=== PATIENT | female | born 1940 | race Caucasian/White ===

== ENCOUNTER 2018-08-17 00:36 | Inpatient (IN) ==
[2018-08-17] MEDS ORDERED: Morphine Inj 4 MG/ML Vial IV.PUSH ONE (01:25)
[2018-08-17] MEDS ORDERED: Morphine Sulfate Inj 2 MG/ML Vial IV.PUSH PRN (01:36)
[2018-08-17 01:56] LABS: Baso % (Auto) 0.3 % (0.0-2.0); Eos % (Auto) 0.1 % (0.0-4.0); Hemoglobin 13.9 gm/dL (11.6-15.3); Lymph # (Auto) 4.1 th/mm3 (1.0-4.8); Lymph % (Auto) 26.2 % (9.0-44.0); Mean Corpuscular HGB Conc 33.9 % (32.0-36.0); Mean Corpuscular Hemoglobin 30.6 pg (27.0-34.0); Mean Corpuscular Volume 90.4 fL (80.0-100.0); Mean Platelet Volume 7.9 fL (7.0-11.0); Mono # (Auto) 0.7 th/mm3 (0.0-0.9); Mono % (Auto) 4.7 % (0.0-8.0); Neut # (Auto) 10.8 th/mm3 (1.8-7.7); Neut % (Auto) 68.7 % (16.0-70.0); Platelet Count 259 th/mm3 (150-450); Red Blood Count 4.54 mil/mm3 (4.00-5.30); Red Cell Distribution Width 14.4 % (11.6-17.2); White Blood Count 15.7 th/mm3 (4.0-11.0)
--- NOTE | 2018-08-17 02:01 | ED ---
HPI General Chief Complaint: Fall Stated Complaint: Medical/Transfer Time Seen by Provider: 08/17/18 01:18 Source: patient Mode of arrival: EMS Limitations: no limitations History of Present Illness HPI Narrative: 78-year-old female was transferred from [facility] after a grandfather clock that she was trying to fix fell on her chest. Patient says that this happened at 7 PM. She did not lose consciousness. Currently she is having chest pain especially when she takes a deep breath. She was evaluated in the emergency room. The chest x-ray shows sternal fracture and lung contusions. Patient has history of A. fib and is on Eliquis. She is awake and answering questions appropriately. Vital signs are relatively stable. Patient says that she did not receive any pain medications and would like something for the pain. She was accepted by the trauma surgeon for the transfer. Related Data Home Medications Medication Instructions Recorded Confirmed C,E,zinc,copper [id number] 1 cap PO DAILY 08/17/18 08/17/18 Vitamin D3 Complete 1 cap PO DAILY 08/17/18 08/17/18 apixaban [Eliquis] 2.5 mg PO BID 08/17/18 08/17/18 celecoxib 100 mg PO BID 08/17/18 08/17/18 citalopram 10 mg PO DAILY 08/17/18 08/17/18 cyanocobalamin (vitamin B-12) 5,000 mcg SUBLINGUAL DAILY 08/17/18 08/17/18 digoxin [Lanoxin] 0.125 mg PO DAILY 08/17/18 08/17/18 lisinopril 10 mg PO DAILY 08/17/18 08/17/18 metoprolol tartrate 50 mg PO BID 08/17/18 08/17/18 Allergies Allergy/AdvReac Type Severity Reaction Status Date / Time ciprofloxacin [From Cipro] Allergy Arrhythmias Verified 08/17/18 00:40 Review of Systems ROS: all other systems reviewed are negative [facility] Medical History Medical History Afib (Acute) Arrhythmia (Acute) Arthritis (Acute) Cancer (Acute) GERD (gastroesophageal reflux disease) (Acute) Glaucoma (Acute) Hypertension (Acute) 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 HEAD: Atraumatic. Normocephalic. EYES: Pupils equal and round. No scleral icterus. No injection or drainage. ENT: No nasal bleeding or discharge. Mucous membranes pink and moist. NECK: Trachea midline. No JVD. CARDIOVASCULAR: Regular rate and rhythm. No murmur appreciated. RESPIRATORY: No accessory muscle use. Clear to auscultation. Breath sounds equal bilaterally. Tender chest wall area over the sternum GASTROINTESTINAL: Abdomen soft, non-tender, nondistended. Hepatic and splenic margins not palpable. MUSCULOSKELETAL: No obvious deformities. No clubbing. No cyanosis. No edema. NEUROLOGICAL: Awake and alert. No obvious cranial nerve deficits. Motor grossly within normal limits. Normal speech. PSYCHIATRIC: Appropriate mood and affect; insight and judgment normal. Course Initial Documented Vital Signs Temperature 98 F 08/17/18 00:40 Pulse Rate 85 08/17/18 00:40 Respiratory Rate 20 08/17/18 00:40 Blood Pressure 110/50 L 08/17/18 00:40 Pulse Oximetry 95 08/17/18 00:40 Last Documented Vital Signs Temperature 98 F 08/17/18 00:40 Pulse Rate 85 08/17/18 00:40 Respiratory Rate 20 08/17/18 00:40 Blood Pressure 110/50 L 08/17/18 00:40 Pulse Oximetry 95 08/17/18 00:40 Medical Decision Making MDM Narrative Medical decision making narrative: 2 AM Case was discussed with Dr. Ceballos from trauma surgery and notified of the patient's arrival. He wants the patient to be admitted to ICU. Patient was given pain medication. Medical Screen Exam Complete: Yes Emergency Medical Condition: Yes Lab Data Result diagrams: 08/17/18 01:50 08/17/18 01:50 Lab Results 08/17/18 Range/Units 01:50 WBC 15.7 H (4.0-11.0) th/mm3 RBC 4.54 (4.00-5.30) mil/mm3 Hgb 13.9 (11.6-15.3) gm/dL Hct 41.0 (35.0-46.0) % MCV 90.4 (80.0-100.0) fL MCH 30.6 (27.0-34.0) pg MCHC 33.9 (32.0-36.0) % RDW 14.4 (11.6-17.2) % Plt Count 259 (150-450) th/mm3 MPV 7.9 (7.0-11.0) fL Neut % (Auto) 68.7 (16.0-70.0) % Lymph % (Auto) 26.2 (9.0-44.0) % [place] % (Auto) 4.7 (0.0-8.0) % Eos % (Auto) 0.1 (0.0-4.0) % Baso % (Auto) 0.3 (0.0-2.0) % Neut # (Auto) 10.8 H (1.8-7.7) th/mm3 Lymph # (Auto) 4.1 (1.0-4.8) th/mm3 [place] # (Auto) 0.7 (0.0-0.9) th/mm3 Eos # (Auto) 0.0 (0.0-0.4) th/mm3 Baso # (Auto) 0.0 (0.0-0.2) th/mm3 WBC Differential . Differential Comment Auto diff final Discharge Plan Discharge Disposition Patient Disposition: ED Admit(ED Internal Use Only) Discharge Order Discharge Orders: ED Use Only Admit Order (Routine); Ordered 08/17/18 Ordered By: Armani Wheatley Physicians Team ED Provider: Armani Wheatley Primary Care Provider: Primary Care Julia Castro Attending Provider: Jane Ceballos Discharge Interventions Interventions: Vital Signs Last Done: 08/17/18 00:58 Status ED Status: Admitted Patient
[2018-08-17 02:18] LABS: Calcium 8.3 mg/dL (8.5-10.1); Carbon Dioxide 28.2 meq/L (21.0-32.0); Potassium 5.4 meq/L (3.5-5.1)
[2018-08-17] MEDS ORDERED: Chlorhexidine Gluconate 2% 1 Pack (2 Cloths) TOPICAL PRN (04:00)
[2018-08-17] MEDS: Chlorhexidine Gluconate 2% 1 Pack (2 Cloths) TOPICAL SCH (04:49)
[2018-08-17] MEDS ORDERED: Sod Chloride 0.9% Inj 1,000 ML IV.CONT SCH (05:45)
--- NOTE | 2018-08-17 05:59 | P.HPCC ---
History of Present Illness Primary Care Physician: No Primary Care Physician History of Present Illness: 78 y female a grandfather clock fell on patient's chest and then she fell on to the floor.She was seen and worked up in an outside institution-she has a sternal fracture and pulmonary contusion.She c/o sternal pain-neuro intact,HD normal. Inpatient Certification: I certify that the inpatient services were ordered in accordance with Medicare regulations governing the order. This includes certification that hospital inpatient services are reasonable and necessary and in the case of services not specified as inpatient-only under 42 CFR 419.22(n), that they are appropriately provided as inpatient services in accordance to with the 2-midnight benchmark under 43 CFR 412.3(e) Estimated Total Length of Stay (Days): 5 Plans for Post Hospital Care: Home Review of Systems All other systems reviewed negative except as stated in HPI [facility] - History History Provided By: Patient - Medical History Medical History: Medical History (Last Reviewed 08/17/18 @ 02:00 by Armani Wheatley MD) Afib Arrhythmia Arthritis Cancer GERD (gastroesophageal reflux disease) Glaucoma Hypertension 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 UTI (urinary tract infection) Ulcer - Tobacco History Second Hand Smoke Exposure: No Smoking Status: Never smoker - Alcohol History How Often Do You Have a Drink Containing Alcohol: Never - Substance Use History Substance History: No History of Abuse - Travel History Recent Travel in the [place] Within the Last 8 Weeks: No Recent Travel Out of the Country Within the Last 8 Weeks: No - Immunization History Tetanus Immunization: <5 Years Hx Influenza Vaccine This Season: Yes Medications and Allergies Active Medications: Active Medications Chlorhexidine Gluconate (Chlorhexidine 2% Cloth) 3 pack TOPICAL DAILY@0400 JULES Stop: 08/22/18 03:59 Last Admin: 08/17/18 04:49 Dose: 3 pack Chlorhexidine Gluconate (Chlorhexidine 2% Cloth) 3 pack TOPICAL DAILY@0400 PRN PRN Reason: Extra cloth needed Stop: 08/22/18 03:59 Docusate Sodium (Colace) 100 mg PO BID JULES Acetaminophen (Ofirmev Inj) 1,000 mg in 100 mls @ 400 mls/hr IV.SIG Q6H JULES Stop: 08/17/18 20:14 Last Infusion: 08/17/18 02:51 Dose: Infused Sodium Chloride (Ns Inj) 1,000 mls @ 42 mls/hr IV.CONT .[id number] [facility] Last Admin: 08/17/18 05:44 Dose: 42 mls/hr Morphine Sulfate (Morphine Inj) 2 mg IV.PUSH Q3H PRN PRN Reason: Break through pain Ondansetron HCl (Zofran Inj) 4 mg IV.PUSH Q6H PRN PRN Reason: NAUSEA OR VOMITING Sodium Chloride (Ns Flush) 2 ml IV.FLUSH UNSCH PRN PRN Reason: FLUSH AFTER USING IV ACCESS Allergies Allergy/AdvReac Type Severity Reaction Status Date / Time ciprofloxacin [From Cipro] Allergy Arrhythmias Verified 08/17/18 00:40 Home Medications Medication Instructions Recorded Confirmed Type C,E,zinc,copper [id number] 1 cap PO DAILY 08/17/18 08/17/18 History Vitamin D3 Complete 1 cap PO DAILY 08/17/18 08/17/18 History apixaban [Eliquis] 2.5 mg PO BID 08/17/18 08/17/18 History celecoxib 100 mg PO BID 08/17/18 08/17/18 History citalopram 10 mg PO DAILY 08/17/18 08/17/18 History cyanocobalamin (vitamin B-12) 5,000 mcg SUBLINGUAL DAILY 08/17/18 08/17/18 History digoxin [Lanoxin] 0.125 mg PO DAILY 08/17/18 08/17/18 History lisinopril 10 mg PO DAILY 08/17/18 08/17/18 History metoprolol tartrate 50 mg PO BID 08/17/18 08/17/18 History Results - Labs CBC & Chem 7: 08/17/18 01:50 08/17/18 01:50 Labs: Short CBC 08/17/18 Range/Units 01:50 WBC 15.7 H (4.0-11.0) th/mm3 Hgb 13.9 (11.6-15.3) gm/dL Hct 41.0 (35.0-46.0) % Plt Count 259 (150-450) th/mm3 [facility] 08/17/18 01:50 Sodium 139 Potassium 5.4 H Chloride 102 Carbon Dioxide 28.2 BUN 23 H Creatinine 1.08 H Calcium 8.3 L Cardiac Enzymes 08/17/18 Range/Units 01:50 Troponin I 0.03 (0.02-0.05) ng/mL Exam Vital signs: Vital Signs 08/17/18 00:40 08/17/18 00:58 08/17/18 01:59 Temperature 98 F Pulse Rate 85 101 H Respiratory Rate 20 20 Blood Pressure 110/50 L 162/76 H Pulse Oximetry 95 98 99 08/17/18 02:51 08/17/18 03:27 08/17/18 04:31 Temperature 98.7 F Pulse Rate 93 H Respiratory Rate 20 20 17 Blood Pressure 123/91 H Pulse Oximetry 97 08/17/18 05:00 Temperature Pulse Rate 89 Respiratory Rate 16 Blood Pressure 92/51 L Pulse Oximetry 98 Intake & Output 08/16/18 08/16/18 08/17/18 06:59 18:59 06:59 Intake Total 100 / 100 Balance 100 / 100 Weight 60.9 kg Intake: IV 100 / 100 Ofirmev Inj 1,000 mg In 100 ml 100 / 100 @ 400 mls/hr IV.SIG Q6H JULES Rx# :[id number] Other: # Urine Diapers 2 Weight On Admission 60.9 kg - Constitutional no acute distress - Routine HEENT Exam Head: Present: normocephalic, atraumatic Eye: Present: EOMI, PERRL ENT: Present: mucous membranes moist, oropharynx clear - Routine Neck Exam Present: supple, full ROM, trachea midline - Routine Chest/Breast/Axilla Exam Chest wall: Present: tenderness - Routine Respiratory Exam Present: CTA bilaterally - Routine Cardiovascular Exam Present: RRR - Routine Abdominal Exam Present: soft, normoactive bowel sounds - Routine Neurological Exam Present: alert, oriented X3 Caprini VTE Risk Assessment Caprini VTE Risk Assessment: Moderate/High Risk (score >= 2) (trauma) VTE Pharmacological Exception Reason: High risk for bleeding Caprini Risk Assessment Model: Point Value = 1 Point Value = 2 Point Value = 3 Point Value = 5 Age 41-60 Minor surgery BMI > 25 kg/m2 Swollen legs Varicose veins or History of unexplained or recurrent spontaneous Oral contraceptives or hormone replacement Sepsis (< 1 month) Serious lung disease, including pneumonia (< 1 month) Abnormal pulmonary function Acute myocardial infarction Congestive heart failure (< 1 month) History of inflammatory bowel disease Medical patient at bed rest Age 61-74 Arthroscopic surgery Major open surgery (> 45 min) Laparoscopic surgery (> 45 min) Malignancy Confined to bed (> 72 hours) Immobilizing plaster cast Central venous access Age >= 75 History of VTE Family history of VTE Factor V Leiden Prothrombin [id number] Lupus anticoagulant Anticardiolipin antibodies Elevated serum homocysteine Heparin-induced thrombocytopenia Other congenital or acquired thrombophilia Stroke (< 1 month) Elective arthroplasty Hip, pelvis, or leg fracture Acute spinal cord injury (< 1 month) Prophylaxis Regimen: Total Risk Factor Score Risk Level Prophylaxis Regimen 0-1 Low Early ambulation 2 Moderate Order ONE of the following: *Sequential Compression Device (SCD) *Heparin 5000 units SQ BID 3-4 Higher Order ONE of the following medications: *Heparin 5000 units SQ TID *Enoxaparin/Lovenox 40 mg SQ daily (WT < 150 kg, CrCl > 30 mL/min) *Enoxaparin/Lovenox 30 mg SQ daily (WT < 150 kg, CrCl > 10-29 mL/min) *Enoxaparin/Lovenox 30 mg SQ BID (WT < 150 kg, CrCl > 30 mL/min) AND/OR *Sequential Compression Device (SCD) 5 or more Highest Order ONE of the following medications: *Heparin 5000 units SQ TID (Preferred with Epidurals) *Enoxaparin/Lovenox 40 mg SQ daily (WT < 150 kg, CrCl > 30 mL/min) *Enoxaparin/Lovenox 30 mg SQ daily (WT < 150 kg, CrCl > 10-29 mL/min) *Enoxaparin/Lovenox 30 mg SQ BID (WT < 150 kg, CrCl > 30 mL/min) AND *Sequential Compression Device (SCD) Assessment and Plan - Assessment and Plan Plan: sternal fracture with pulmonary contusion in eliquis hypernatriemia admit to [facility] pain control IS watch K FU CXR H&P: Quality - VTE Deep Vein Thrombosis/Pulmonary Embolism Present on Admission: No
--- NOTE | 2018-08-17 08:37 | CT ---
EXAM DATE: 08/17/2018 8:00 AM EST AGE/SEX: 78 years / Female INDICATIONS: Center chest pain. CLINICAL DATA: This is the patient's initial encounter. Patient reports that signs and symptoms have been present for 1 day and indicates a pain score of 8/10. MEDICAL/SURGICAL HISTORY: Gastroesophageal reflux disease. Hypertension. None. RADIATION DOSE: 5.1 CTDI (mGy) COMPARISON: No prior exams available for comparison. TECHNIQUE: Multiple contiguous axial images were obtained through the chest without contrast. Image s were obtained in suspended respiration using multiple row detector helical technique. Using automa brittany exposure control and adjustment of the mA and/or kV according to patient size, radiation dose was kept as low as reasonably achievable to obtain optimal diagnostic quality images. DICOM format imag e data is available electronically for review and comparison. FINDINGS: Lungs: Focal subsegmental consolidation with underlying airspace disease is identified anteriorly wi thin the lingula. Very subtle tree-in-bud pattern is identified in both upper lobes. There appears to be focal scarring within the right middle lobe. No other focal lung abnormalities are noted. Mediastinum: There is good visualization of the great vessels of the middle mediastinum. No evidenc e of mediastinal or hilar adenopathy/mass. Pleurae: No evidence of focal thickening or pleural effusion. Axillae: Unremarkable. Bony Structures: Unremarkable. Miscellaneous: A well-circumscribed low density is identified in the right hepatic lobe which has th e appearance of the cyst. CONCLUSION: 1. Small focal subsegmental consolidating airspace disease with underlying airspace changes in the l ingula. 2. Minimal tree-in-bud pattern which may relate to mild airspace disease or infectious bronchiolitis . 3. Hepatic cyst 4. No evidence of suspicious mass or lymphadenopathy. Electronically signed by: Himanshu Vincent MD 08/17/2018 8:36 AM EST
[2018-08-17] MEDS: Docusate Sodium 100 MG Capsule PO SCH ×2 (09:18→20:02)
[2018-08-17] MEDS: Lisinopril 10 MG Tablet PO SCH (09:19)
[2018-08-17] MEDS: Metoprolol Tartrate 50 MG Tablet PO SCH ×2 (09:19→20:02)
[2018-08-17] MEDS: Digoxin 125 MCG Tablet PO SCH (09:43)
[2018-08-17] MEDS: Citalopram 20 MG Tablet PO SCH (09:46)
[2018-08-17] MEDS: Lidocaine 5% Patch T-DERMAL SCH (10:30)
[2018-08-17 14:00] LABS: Calcium 7.8 mg/dL (8.5-10.1); Carbon Dioxide 30.4 meq/L (21.0-32.0); Potassium 4.4 meq/L (3.5-5.1)
--- NOTE | 2018-08-17 16:43 | ECG ---
Date Performed: 08/17/2018 Time Performed: 08:17:48 PTAGE: 78 years EKG: Atrial fibrillation controlled ventricular rate LAD Left anterior fascicular block Minor no nspecific ST-T wave changes Abnormal ECG NO PREVIOUS TRACING DOCTOR: Tristin Watson Interpretating Date/Time 08/17/2018 16:42:35
--- NOTE | 2018-08-18 06:02 | XR ---
EXAM DATE: 08/18/2018 5:56 AM EST AGE/SEX: 78 years / Female INDICATIONS: Short of breath, sternum pain, evaluate atelctasis and blunt trauma to chest CLINICAL DATA: This is the patient's subsequent encounter. Patient reports that signs and symptoms h ave been present for 3 days and indicates a pain score of 6/10. MEDICAL/SURGICAL HISTORY: Gastroesophageal reflux disease. Hypertension. sternum fracture Non e. COMPARISON: . FINDINGS: Single AP view the chest. The lungs are clear. Cardiomediastinal silhouette within normal limits. No evidence of pleural effusion or pneumothorax. CONCLUSION: No acute cardiopulmonary disease identified. Electronically signed by: Cristian Siegel MD 08/18/2018 6:01 AM EST
[2018-08-18] MEDS ORDERED: Acetaminophen 325 MG Tablet PO PRN (06:34)
[2018-08-18] MEDS: Chlorhexidine Gluconate 2% 1 Pack (2 Cloths) TOPICAL SCH (08:49)
[2018-08-18] MEDS: Digoxin 125 MCG Tablet PO SCH (08:59)
[2018-08-18] MEDS: Docusate Sodium 100 MG Capsule PO SCH ×2 (08:59→20:54)
[2018-08-18] MEDS: Lidocaine 5% Patch T-DERMAL SCH (08:59)
[2018-08-18 09:00] LABS: Baso # (Auto) 0.1 th/mm3 (0.0-0.2); Baso % (Auto) 0.5 % (0.0-2.0); Eos # (Auto) 0.1 th/mm3 (0.0-0.4); Eos % (Auto) 0.8 % (0.0-4.0); Hematocrit 39.2 % (35.0-46.0); Hemoglobin 13.2 gm/dL (11.6-15.3); Mean Corpuscular HGB Conc 33.6 % (32.0-36.0); Mean Corpuscular Hemoglobin 30.7 pg (27.0-34.0); Mean Corpuscular Volume 91.4 fL (80.0-100.0); Mean Platelet Volume 7.8 fL (7.0-11.0); Mono # (Auto) 0.5 th/mm3 (0.0-0.9); Mono % (Auto) 5.2 % (0.0-8.0); Neut # (Auto) 6.1 th/mm3 (1.8-7.7); Neut % (Auto) 62.5 % (16.0-70.0); Platelet Count 238 th/mm3 (150-450); Red Blood Count 4.29 mil/mm3 (4.00-5.30); Red Cell Distribution Width 14.1 % (11.6-17.2); White Blood Count 9.8 th/mm3 (4.0-11.0)
[2018-08-18] MEDS: Citalopram 20 MG Tablet PO SCH (09:00)
[2018-08-18] MEDS: Lisinopril 10 MG Tablet PO SCH (09:02)
[2018-08-18] MEDS: Metoprolol Tartrate 50 MG Tablet PO SCH ×2 (09:03→20:56)
[2018-08-18 09:30] LABS: Calcium 8.8 mg/dL (8.5-10.1); Carbon Dioxide 29.9 meq/L (21.0-32.0); Potassium 4.2 meq/L (3.5-5.1)
--- NOTE | 2018-08-18 10:37 | P.CON ---
History of Present Illness Service: [facility] Consult date: 08/17/18 Requesting Physician: Wil Last Reason for Consult: medical management Primary Care Provider: No Primary Care Physician Chief Complaint: Clock fell on me History of Present Illness: 78-year-old female with past medical history significant for A. fib anticoagulated on Eliquis, arthritis, GERD, HTN, cancer and glaucoma who presented to the [facility] 12/8 centimeters EMS following a fall. Medical records reviewed. Patient apparently had been moving a 50 pound grandfather clock when the clock tilted forward causing the patient to fall backwards with a clot landing on top of her and hitting her head. Per medical records bilateral hip x-rays with no fracture, arthroplasty hip noted. CT of the head with global brain atrophy and chronic white matter ischemic changes, CT of cervical spine with degenerative changes without acute injury. CT of the chest with no pulmonary artery embolism, nonspecific 2.9 cm opacity in anterior medial left upper lobe possibly contusion, infection or atelectasis. Cortical deficit of posterior sternum appears acute but is nondisplaced, this is at the level of the pulmonary opacity. Minimal retrosternal contusion with no injury of adjacent vessels. Nonspecific 10 x 11 mm low-density mass in the pancreatic tail with suspicion for mass in pancreatic head. Knee x-ray with no acute fracture. Patient was transferred to [facility] on 08/17 for further management under trauma services. [facility] consulted to assist with further medical management. Patient is seen and examined resting in bed comfortably in no acute distress. She reports chest pain which is increased with activity as well as with sternal pressure and deep breathing. She denies any cough, shortness of breath, nausea, vomiting, diarrhea, headache or dizziness. Patient reports that she recently had left hip replacement in June and had been using both a cane and a walker. She states that she had gradually tried to decrease the use of her walker and on the day of the incident she was adjusting the clock when she experienced some weakness in her legs causing her to react and grab hold of the clock. She reports falling with the clock landing on top of her. Patient also tells me that she has a history of scoliosis and last time she was seen by her orthopedic surgeon was told that the scoliosis had advanced slightly, she is not a surgical candidate. She denies any dizziness, lightheadedness, chest palpitations, visual changes, shortness of breath or chest pain right before the incident. At the current moment she reports some pain and tenderness on her chest, she states that the doctor has adjusted her pain medication. 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 Scoliosis Ulcer - Surgical History Surgical History: Surgical History (Last Updated 08/18/18 @ 10:58 by Ashley Bryson) History of hip replacement - Family History Family History: Family History (Last Updated 08/18/18 @ 10:59 by Ashley Bryson) Father Brain cancer Myocardial infarct Mother Cancer - Social History I have reviewed the patient's Social History: Yes - Tobacco History Second Hand Smoke Exposure: No Smoking Status: Never smoker - Alcohol History How Often Do You Have a Drink Containing Alcohol: Never - Substance Use History Substance History: No History of Abuse - Travel History Recent Travel in the [facility] Within the Last 8 Weeks: No Recent Travel Out of the Country Within the Last 8 Weeks: No - Immunization History Tetanus Immunization: <5 Years Hx Influenza Vaccine This Season: Yes Medications and Allergies Active Medications: Active Medications Acetaminophen (Tylenol) 650 mg PO Q4H PRN PRN Reason: PAIN 1-10 AND/OR FEVER >101F Last Admin: 08/18/18 09:02 Dose: 650 mg Chlorhexidine Gluconate (Chlorhexidine 2% Cloth) 3 pack TOPICAL DAILY@0400 [facility] Stop: 08/22/18 03:59 Last Admin: 08/18/18 08:49 Dose: Not Given Chlorhexidine Gluconate (Chlorhexidine 2% Cloth) 3 pack TOPICAL DAILY@0400 PRN PRN Reason: Extra cloth needed Stop: 08/22/18 03:59 Citalopram Hydrobromide (Celexa) 10 mg PO DAILY [facility] Last Admin: 08/18/18 09:00 Dose: 10 mg Cyanocobalamin (Vitamin B12) 5,000 mcg PO DAILY [facility] Last Admin: 08/18/18 09:01 Dose: 5,000 mcg Digoxin (Lanoxin) 125 mcg PO DAILY [facility] Last Admin: 08/18/18 08:59 Dose: 125 mcg Docusate Sodium (Colace) 100 mg PO BID [facility] Last Admin: 08/18/18 08:59 Dose: 100 mg Lidocaine HCl (Lidoderm 5% Patch.12 Hr) 1 patch T-DERMAL DAILY [facility] Last Admin: 08/18/18 08:59 Dose: 1 patch Lisinopril (Prinivil) 10 mg PO DAILY [facility] Last Admin: 08/18/18 09:02 Dose: 10 mg Metoprolol Tartrate (Lopressor) 50 mg PO BID [facility] Last Admin: 08/18/18 09:03 Dose: 50 mg Morphine Sulfate (Morphine Inj) 2 mg IV.PUSH Q3H PRN PRN Reason: Break through pain Ondansetron HCl (Zofran Inj) 4 mg IV.PUSH Q6H PRN PRN Reason: NAUSEA OR VOMITING Patch Removal (Remove Old Patch) 1 each T-DERMAL HS [facility] Last Admin: 08/17/18 20:02 Dose: 1 each Sodium Chloride (Ns Flush) 2 ml IV.FLUSH UNSCH PRN PRN Reason: FLUSH AFTER USING IV ACCESS Vitamin D (Vitamin D3) 1 unit PO DAILY [facility] Last Admin: 08/18/18 09:04 Dose: 1 unit Allergies Allergy/AdvReac Type Severity Reaction Status Date / Time ciprofloxacin [From Cipro] Allergy Arrhythmias Verified 08/17/18 00:40 Home Medications Medication Instructions Recorded Confirmed Type C,E,zinc,copper [id number] 1 cap PO DAILY 08/17/18 08/17/18 History Vitamin D3 Complete 1 cap PO DAILY 08/17/18 08/17/18 History apixaban [Eliquis] 2.5 mg PO BID 08/17/18 08/17/18 History celecoxib 100 mg PO BID 08/17/18 08/17/18 History citalopram 10 mg PO DAILY 08/17/18 08/17/18 History cyanocobalamin (vitamin B-12) 5,000 mcg SUBLINGUAL DAILY 08/17/18 08/17/18 History digoxin [Lanoxin] 0.125 mg PO DAILY 08/17/18 08/17/18 History lisinopril 10 mg PO DAILY 08/17/18 08/17/18 History metoprolol tartrate 50 mg PO BID 08/17/18 08/17/18 History Physical Exam Vital signs: Vital Signs 08/17/18 10:38 08/17/18 11:00 08/17/18 12:00 Temperature 98.3 F Pulse Rate 59 L 62 58 L Respiratory Rate 20 22 16 Blood Pressure 97/63 L Pulse Oximetry 96 96 96 08/17/18 13:00 08/17/18 14:00 08/17/18 14:46 Temperature Pulse Rate 58 L 65 79 Respiratory Rate 19 20 21 Blood Pressure 103/60 Pulse Oximetry 96 97 96 08/17/18 15:00 08/17/18 16:00 08/17/18 16:10 Temperature 97.9 F Pulse Rate 76 72 89 Respiratory Rate 19 12 18 Blood Pressure 127/55 L Pulse Oximetry 95 95 08/17/18 17:00 08/17/18 18:00 08/17/18 19:00 Temperature Pulse Rate 72 72 86 Respiratory Rate 14 19 20 Blood Pressure Pulse Oximetry 95 95 95 08/17/18 19:26 08/17/18 20:00 08/17/18 20:05 Temperature 98.6 F Pulse Rate 82 70 Respiratory Rate 20 20 Blood Pressure 126/76 Pulse Oximetry 95 95 94 L 08/17/18 20:17 08/17/18 21:50 08/18/18 00:20 Temperature 98.6 F 97.9 F Pulse Rate 77 82 Respiratory Rate 22 18 18 Blood Pressure 118/62 135/71 Pulse Oximetry 96 96 08/18/18 03:30 08/18/18 05:00 08/18/18 08:00 Temperature 98 F 97.2 F L Pulse Rate 102 H 100 H Respiratory Rate 17 18 18 Blood Pressure 127/88 110/66 Pulse Oximetry 96 94 L Intake & Output 08/17/18 08/18/18 08/18/18 18:59 06:59 18:59 Intake Total 990 / 990 340 / 340 Output Total 525 / 525 Balance 465 / 465 340 / 340 Weight 66.2 kg Intake: IV 300 / 300 100 / 100 NS Inj 1,000 ML @ 42 mls/hr IV. 100 / 100 CONT .[id number] JULES Rx#:[id number] Ofirmev Inj 1,000 mg In 100 ml 200 / 200 100 / 100 @ 400 mls/hr IV.SIG Q6H JULES Rx# :[id number] Oral 690 / 690 240 / 240 Output: Urine 525 / 525 Other: # Voids 3 Date of Last Bowel Movement 08/16/18 # Bowel Movements 0 Narrative: GENERAL: Well-developed, well-nourished female resting in bed in no acute distress. SKIN: Warm and dry. Midsternal ecchymosis, right hand ecchymosis, left medial forearm ecchymosis. HEAD: Atraumatic. Normocephalic. EYES: Pupils equal and round. No scleral icterus. No injection or drainage. ENT: No nasal bleeding or discharge. Mucous membranes pink and moist. NECK: Trachea midline. CARDIOVASCULAR: Irregular rate with no murmurs or rubs. RESPIRATORY: No accessory muscle use. Clear to auscultation. Breath sounds equal bilaterally. GASTROINTESTINAL: Abdomen soft, non-tender, nondistended. + Bowel sounds MUSCULOSKELETAL: Extremities without clubbing, edema, or cyanosis. No obvious deformities. NEUROLOGICAL: Awake, alert, oriented x3. No obvious cranial nerve deficits. Motor grossly within normal limits. 4/5 muscle strength in the arms and legs. Normal speech. PSYCHIATRIC: Appropriate mood and affect; insight and judgment normal. Results - Labs CBC & Chem 7: 08/18/18 08:23 08/18/18 08:23 Labs: Laboratory Results - last 24 hr 08/17/18 08/18/18 08/18/18 12:41 08:23 08:23 WBC 9.8 RBC 4.29 Hgb 13.2 Hct 39.2 MCV 91.4 MCH 30.7 MCHC 33.6 RDW 14.1 Plt Count 238 MPV 7.8 Neut % (Auto) 62.5 Lymph % (Auto) 31.0 [place] % (Auto) 5.2 Eos % (Auto) 0.8 Baso % (Auto) 0.5 Neut # (Auto) 6.1 Lymph # (Auto) 3.0 [place] # (Auto) 0.5 Eos # (Auto) 0.1 Baso # (Auto) 0.1 WBC Differential . Differential Comment Auto diff final Sodium 139 138 Potassium 4.4 D 4.2 Chloride 103 102 Carbon Dioxide 30.4 29.9 Anion Gap 6 6 BUN 19 H 15 Creatinine 0.95 1.00 Estimated GFR 57 L 53 L Random Glucose 101 88 Calcium 7.8 L 8.8 D Troponin I 08/18/18 08:23 WBC RBC Hgb Hct MCV MCH MCHC RDW Plt Count MPV Neut % (Auto) Lymph % (Auto) [place] % (Auto) Eos % (Auto) Baso % (Auto) Neut # (Auto) Lymph # (Auto) [place] # (Auto) Eos # (Auto) Baso # (Auto) WBC Differential Differential Comment Sodium Potassium Chloride Carbon Dioxide Anion Gap BUN Creatinine Estimated GFR Random Glucose Calcium Troponin I Less than 0.02 L - Imaging Impressions Chest X-Ray 08/18/18 06:00 CONCLUSION: No acute cardiopulmonary disease identified. Assessment and Plan - Plan 78-year-old female with past medical history significant for A. fib anticoagulated on Eliquis, arthritis, GERD, HTN, cancer and glaucoma who presented to the [facility] 08/16 centimeters EMS following a fall. Patient was transferred to [facility] on 08/17 for further management under trauma services. [facility] consulted to assist with further medical management. Chest blunt trauma Sternal fracture/pulmonary contusion - Chest CT 08/17 with focal subsegmental consolidation with underlying airspace disease identified anteriorly within the lingula. Very subtle tree-in-bud pattern is identified in both upper lobes. Appears to be focal scarring within the right middle lobe. Hepatic cyst, no suspicious mass or lymphadenopathy. -Chest x-ray this morning with no acute cardiopulmonary disease -CBC and BMP stable, troponin x2 negative - Continue Lidoderm patch, pain medications per trauma services -PT to eval and treat, encourage IS use Hx a.fib, rate controlled - Anticoagulated on Eliquis, on hold 2/2 lung contusion -Continue metoprolol and digoxin, rate controlled Hypertension, controlled -Continue beta-rodo and lisinopril DVT prophylaxis-SCDs Thank you Wil for this consultation, will continue to follow along. Discussed Condition With: Patient and PT
--- NOTE | 2018-08-18 15:18 | P.PN ---
Subjective Interval history: Unable to get OOB yesterday d/t increased pain with mobility More painful today Incentive spirometer VL= 2000mL Physical Exam Vital signs: Vital Signs 08/17/18 16:00 08/17/18 16:10 08/17/18 17:00 Temperature 97.9 F Pulse Rate 72 89 72 Respiratory Rate 12 18 14 Blood Pressure 127/55 L Pulse Oximetry 95 95 08/17/18 18:00 08/17/18 19:00 08/17/18 19:26 Temperature Pulse Rate 72 86 82 Respiratory Rate 19 20 20 Blood Pressure 126/76 Pulse Oximetry 95 95 95 08/17/18 20:00 08/17/18 20:05 08/17/18 20:17 Temperature 98.6 F Pulse Rate 70 Respiratory Rate 20 22 Blood Pressure Pulse Oximetry 95 94 L 08/17/18 21:50 08/18/18 00:20 08/18/18 03:30 Temperature 98.6 F 97.9 F Pulse Rate 77 82 Respiratory Rate 18 18 17 Blood Pressure 118/62 135/71 Pulse Oximetry 96 96 08/18/18 05:00 08/18/18 08:00 08/18/18 12:00 Temperature 98 F 97.2 F L 97.2 F L Pulse Rate 102 H 100 H 80 Respiratory Rate 18 18 18 Blood Pressure 127/88 110/66 101/66 Pulse Oximetry 96 95 92 L Intake & Output 08/17/18 08/18/18 08/18/18 18:59 06:59 18:59 Intake Total 990 / 990 340 / 340 Output Total 525 / 525 Balance 465 / 465 340 / 340 Weight 66.2 kg Intake: IV 300 / 300 100 / 100 NS Inj 1,000 ML @ 42 mls/hr IV. 100 / 100 CONT .[id number] JULES Rx#:[id number] Ofirmev Inj 1,000 mg In 100 ml 200 / 200 100 / 100 @ 400 mls/hr IV.SIG Q6H JULES Rx# :[id number] Oral 690 / 690 240 / 240 Output: Urine 525 / 525 Other: # Voids 3 Date of Last Bowel Movement 08/16/18 08/16/18 # Bowel Movements 0 Narrative: GENERAL: 78 year old well-developed, well-nourished female lying in bed in no acute distress. SKIN: Warm and dry. Midsternal ecchymosis noted. CARDIOVASCULAR: Irregularly irregular. RESPIRATORY: No accessory muscle use. Clear to auscultation bilaterally. GASTROINTESTINAL: Abdomen soft, non-tender, nondistended. + BS MUSCULOSKELETAL: Extremities without edema, or cyanosis. MAEW, + perfused NEUROLOGICAL: Awake, alert, oriented x3. Normal speech. Results - Labs CBC & Chem 7: 08/18/18 08:23 12 08:23 Laboratory Results - last 24 hr 08/18/18 08/18/18 08/18/18 08:23 08:23 08:23 WBC 9.8 RBC 4.29 Hgb 13.2 Hct 39.2 MCV 91.4 MCH 30.7 MCHC 33.6 RDW 14.1 Plt Count 238 MPV 7.8 Neut % (Auto) 62.5 Lymph % (Auto) 31.0 [place] % (Auto) 5.2 Eos % (Auto) 0.8 Baso % (Auto) 0.5 Neut # (Auto) 6.1 Lymph # (Auto) 3.0 [place] # (Auto) 0.5 Eos # (Auto) 0.1 Baso # (Auto) 0.1 WBC Differential . Differential Comment Auto diff final Sodium 138 Potassium 4.2 Chloride 102 Carbon Dioxide 29.9 Anion Gap 6 BUN 15 Creatinine 1.00 Estimated GFR 53 L Random Glucose 88 Calcium 8.8 D Troponin I Less than 0.02 L - Imaging Impressions Chest X-Ray 08/18/18 06:00 CONCLUSION: No acute cardiopulmonary disease identified. Assessment and Plan - Plan ANVIK: Grandfather clock fell on her chest while she was trying to fix it. No LOC. GCS= 15. Trauma transfer. INJURIES: Sternal fx BILAT pulmonary contusions PMHx: Afib (On Eliquis), Arthritis, GERD, cancer, depression,HTN, Glaucoma, Degenerative myopia left eye, gastric ulcer Sternal fx, BILAT pulmonary contusions Supportive care Pulmonary toileting CXR today shows no acute cardiopulmonary disease Pain control- pain regimen adjusted Bowel regimen OOB- PT and OT ordered Tele shows Afib Resume Eliquis today Hospitalist consulted for medical management Plan of care d/w patient and RN at bedside. Collaborating Trauma MD agrees with plan. Case management consulted to assist with DC planning. Patient may need SNF placement at DC depending on progress with PT. Reports she lives at home with her sons.
[2018-08-19] MEDS: Chlorhexidine Gluconate 2% 1 Pack (2 Cloths) TOPICAL SCH (04:37)
[2018-08-19] MEDS: Lisinopril 10 MG Tablet PO SCH (08:28)
[2018-08-19] MEDS: Metoprolol Tartrate 50 MG Tablet PO SCH ×2 (08:28→20:52)
[2018-08-19] MEDS: Lidocaine 5% Patch T-DERMAL SCH (08:29)
[2018-08-19] MEDS: Citalopram 20 MG Tablet PO SCH (08:29)
[2018-08-19] MEDS: Digoxin 125 MCG Tablet PO SCH (08:29)
[2018-08-19] MEDS: Docusate Sodium 100 MG Capsule PO SCH ×2 (08:30→20:52)
[2018-08-19] MEDS: Polyethylene Glycol 3350 17 GM Packet PO SCH (08:31)
--- NOTE | 2018-08-19 08:52 | P.DCO ---
- Physical Therapy Order: Evaluate and treat, Improve ambulation, Strength and gait training - Home Health Nursing Order: Nursing assessment with vital signs - Case Management Consult Case Management Consult-Home Health: Yes - Certification I have seen patient Debra Palma on 08/19/18. My clinical findings support the need for the requested home health care services because: Limited mobility due to disease progression, Limited ability to care for self I certify that my clinical findings support that this patient is homebound because: Unsteady gait/balance
--- NOTE | 2018-08-19 08:52 | P.PN ---
Subjective Interval history: Pain better today Still requiring max assist OOB. Not interested in rehab at [place] Physical Exam Vital signs: Vital Signs 08/18/18 12:00 08/18/18 19:01 08/18/18 20:00 Temperature 97.2 F L 97.8 F Pulse Rate 80 73 Respiratory Rate 18 18 Blood Pressure 101/66 99/61 L 114/63 Pulse Oximetry 92 L 91 L 08/19/18 00:00 08/19/18 04:00 Temperature 97.7 F 97.8 F Pulse Rate 76 87 Respiratory Rate 18 18 Blood Pressure 104/68 121/64 Pulse Oximetry 92 L 97 Intake & Output 08/18/18 08/19/18 08/19/18 18:59 06:59 18:59 Intake Total 180 / 180 120 / 120 Output Total 350 / 350 Balance 180 / 180 -230 / -230 Weight 65 kg Intake: Oral 180 / 180 120 / 120 Output: Urine 350 / 350 Other: Date of Last Bowel Movement 08/16/18 08/18/18 Narrative: GENERAL: 78 year old well-developed, well-nourished female lying in bed in no acute distress. SKIN: Warm and dry. Midsternal ecchymosis noted. CARDIOVASCULAR: Irregularly irregular. RESPIRATORY: No accessory muscle use. Clear to auscultation bilaterally. GASTROINTESTINAL: Abdomen soft, non-tender, nondistended. + BS MUSCULOSKELETAL: Extremities without edema, or cyanosis. MAEW, + perfused NEUROLOGICAL: Awake, alert, oriented x3. Normal speech. Results - Labs CBC & Chem 7: 08/18/18 08:23 08/18/18 08:23 Laboratory Results - last 24 hr 08/18/18 08/18/18 08/18/18 08:23 08:23 08:23 WBC 9.8 RBC 4.29 Hgb 13.2 Hct 39.2 MCV 91.4 MCH 30.7 MCHC 33.6 RDW 14.1 Plt Count 238 MPV 7.8 Neut % (Auto) 62.5 Lymph % (Auto) 31.0 [place] % (Auto) 5.2 Eos % (Auto) 0.8 Baso % (Auto) 0.5 Neut # (Auto) 6.1 Lymph # (Auto) 3.0 [place] # (Auto) 0.5 Eos # (Auto) 0.1 Baso # (Auto) 0.1 WBC Differential . Differential Comment Auto diff final Sodium 138 Potassium 4.2 Chloride 102 Carbon Dioxide 29.9 Anion Gap 6 BUN 15 Creatinine 1.00 Estimated GFR 53 L Random Glucose 88 Calcium 8.8 D Troponin I Less than 0.02 L Assessment and Plan - Plan HOH: Grandfather clock fell on her chest while she was trying to fix it. No LOC. GCS= 15. Trauma transfer. INJURIES: Sternal fx BILAT pulmonary contusions PMHx: Afib (On Eliquis), Arthritis, GERD, cancer, depression,HTN, Glaucoma, Degenerative myopia left eye, gastric ulcer Sternal fx, BILAT pulmonary contusions Supportive care Pulmonary toileting CXR today shows no acute cardiopulmonary disease Pain control- pain regimen adjusted Bowel regimen OOB- PT and OT ordered. Pre-medicate before working with PT Tele shows ib Denisse Hospitalist consulted for medical management Plan of care d/w patient at bedside. Collaborating Trauma MD agrees with plan. Case management consulted to assist with DC planning. Patient may need SNF placement at DC depending on progress with PT but refuses to go to a SNF. Hopeful that patient can return home with [facility] in 1-2 days.
--- NOTE | 2018-08-19 09:48 | P.PNIM ---
Subjective Interval history: f/u; chest trauma in no acute distress. has some pain to the chest but overall looks fairly comfortable. no other new complaints. Physical Exam Vital signs: Last Vital Signs Temp 98.0 F 08/19/18 08:00 Pulse 92 H 08/19/18 08:00 Resp 18 08/19/18 08:00 BP 134/72 08/19/18 08:00 Pulse Ox 92 L 08/19/18 08:00 Intake & Output 08/17/18 08/18/18 08/19/18 08/20/18 06:59 06:59 06:59 06:59 Intake Total 100 / 100 1330 / 1330 300 / 300 Output Total 0 / 0 525 / 525 350 / 350 Balance 100 / 100 805 / 805 -50 / -50 Weight 60.9 kg 66.2 kg 65 kg Constitutional no acute distress Routine Chest/Breast/Axilla Exam Chest wall: Present tenderness Comments: anterior chest wall tenderness. Routine Respiratory Exam Present CTA bilaterally Routine Cardiovascular Exam Present RRR Routine Abdominal Exam Present soft Routine Extremities Exam Comments: no pedal edema. Routine Neurological Exam Present alert and oriented X3 Results Labs CBC & Chem 7: 08/18/18 08:23 08/18/18 08:23 Assessment and Plan Plan Chest blunt trauma Sternal fracture/pulmonary contusion - Chest CT 08/17 with focal subsegmental consolidation with underlying airspace disease identified anteriorly within the lingula. Very subtle tree-in-bud pattern is identified in both upper lobes. Appears to be focal scarring within the right middle lobe. Hepatic cyst, no suspicious mass or lymphadenopathy. -Chest x-ray with no acute cardiopulmonary disease -CBC and BMP stable, troponin x2 negative - Continue Lidoderm patch, pain medications per trauma services -PT to eval and treat, encourage IS use Hx a.fib, rate controlled - Anticoagulated on Eliquis, on hold 2/2 lung contusion -Continue metoprolol and digoxin, rate controlled Hypertension, controlled -Continue beta-rodo and lisinopril DVT prophylaxis-SCDs Discharge Planning: case management consulted to assist with dc planning. Progress Note: Quality VTE Deep Vein Thrombosis/Pulmonary Embolism Present on Admission: No
[2018-08-20] MEDS: Chlorhexidine Gluconate 2% 1 Pack (2 Cloths) TOPICAL SCH (06:28)
[2018-08-20] MEDS: Lisinopril 10 MG Tablet PO SCH (08:31)
[2018-08-20] MEDS: Digoxin 125 MCG Tablet PO SCH (08:32)
[2018-08-20] MEDS: Metoprolol Tartrate 50 MG Tablet PO SCH (08:32)
[2018-08-20] MEDS: Citalopram 20 MG Tablet PO SCH (08:32)
[2018-08-20] MEDS: Docusate Sodium 100 MG Capsule PO SCH (08:32)
[2018-08-20] MEDS: Polyethylene Glycol 3350 17 GM Packet PO SCH (08:33)
[2018-08-20] MEDS: Lidocaine 5% Patch T-DERMAL SCH (08:33)
[2018-08-20 09:20] VITALS: TEMP 97.9
--- NOTE | 2018-08-20 10:50 | P.PNIM ---
Subjective Interval history: f/u; chest trauma in no acute distress. looks comfortable. pain is controlled. no new complaints. Physical Exam Vital signs: Last Vital Signs Temp 97.9 F 08/20/18 08:00 Pulse 68 08/20/18 08:00 Resp 17 08/20/18 08:00 BP 112/54 L 08/20/18 08:00 Pulse Ox 96 08/20/18 08:00 Intake & Output 08/18/18 08/19/18 08/20/18 08/21/18 06:59 06:59 06:59 06:59 Intake Total 1330 / 1330 300 / 300 1080 / 1080 Output Total 525 / 525 350 / 350 Balance 805 / 805 -50 / -50 1080 / 1080 Weight 66.2 kg 65 kg 65.3 kg Constitutional no acute distress Routine Chest/Breast/Axilla Exam Chest wall: Present tenderness Comments: mild chest wall tenderness. Routine Respiratory Exam Present CTA bilaterally Routine Cardiovascular Exam Present RRR Routine Abdominal Exam Present soft Routine Extremities Exam Comments: no pedal edema. Routine Neurological Exam Present alert and oriented X3 Results Labs CBC & Chem 7: 08/18/18 08:23 08/18/18 08:23 Assessment and Plan Plan A/P Chest blunt trauma Sternal fracture/pulmonary contusion - Chest CT 08/17 with focal subsegmental consolidation with underlying airspace disease identified anteriorly within the lingula. Very subtle tree-in-bud pattern is identified in both upper lobes. Appears to be focal scarring within the right middle lobe. Hepatic cyst, no suspicious mass or lymphadenopathy. -Chest x-ray with no acute cardiopulmonary disease -CBC and BMP stable, troponin x2 negative - Continue pain medications per trauma services -PT to eval and treat, encourage IS use Hx a.fib, rate controlled - Anticoagulated on Eliquis, on hold 2/2 lung contusion -Continue metoprolol and digoxin, rate controlled Hypertension, controlled -Continue beta-rodo and lisinopril DVT prophylaxis-SCDs Discharge Planning: case management consulted to assist with dc planning. dc planning per trauma surgery. Progress Note: Quality VTE Deep Vein Thrombosis/Pulmonary Embolism Present on Admission: No
--- NOTE | 2018-08-20 11:28 | P.DS ---
Date of admission: 08/17/18 01:38 Primary care physician: No Primary Care Physician Brief History from admission: S/P Fall DS: Diagnosis - Discharge Diagnosis (1) Fall Status: Acute (2) Sternal fracture Status: Acute (3) Pulmonary contusion Status: Acute DS: Medications - Discharge Medications Prescriptions: hydrocodone-acetaminophen 1 tab PO Q4H PRN #14 tab PRN Reason: Acute Pain DS: Summary Hospital Course: [facility]: Jose han fell on her chest while she was trying to fix it. No LOC. GCS= 15. Trauma transfer. INJURIES: Sternal fx BILAT pulmonary contusions PMHx: Afib (On Eliquis), Arthritis, GERD, cancer, depression,HTN, Glaucoma, Degenerative myopia left eye, gastric ulcer Sternal fx, BILAT pulmonary contusions Supportive care Pulmonary toileting CXR shows no acute cardiopulmonary disease Pain control Bowel regimen OOB- PT and OT ordered Tele shows Afib Eliquis Hospitalist consulted for medical management. F/U with PCP in 1 week Plan of care d/w patient and RN at bedside. Collaborating Trauma MD agrees with plan. Case management consulted to assist with DC planning. Patient is cleared from trauma surgery standpoint to safely discharge home with home health care. - Time Spent with Patient Total time spent providing and/or coordinating discharge services: Greater than 30 minutes - Quality: VTE Deep Vein Thrombosis/Pulmonary Embolism Present on Admission: No Exam Vital signs: Vital Signs 08/19/18 12:00 08/19/18 16:00 08/19/18 20:00 Temperature 97.8 F 97.6 F 98.2 F Pulse Rate 86 72 75 Respiratory Rate 18 16 19 Blood Pressure 94/55 L 103/57 L 114/56 L Pulse Oximetry 95 95 92 L 08/20/18 00:00 08/20/18 03:10 08/20/18 08:00 Temperature 97.8 F 97.9 F Pulse Rate 64 68 Respiratory Rate 16 20 17 Blood Pressure 91/57 L 112/54 L Pulse Oximetry 92 L 96 Intake & Output 08/19/18 08/20/18 08/20/18 18:59 06:59 18:59 Intake Total 600 / 600 480 / 480 Balance 600 / 600 480 / 480 Weight 65.3 kg Intake: Oral 600 / 600 480 / 480 Other: # Voids 2 2 Date of Last Bowel Movement 08/18/18 08/18/18 Narrative: GENERAL: 78 year old well-developed, well-nourished female lying in bed in no acute distress. SKIN: Warm and dry. Midsternal and left upper arm ecchymosis noted. CARDIOVASCULAR: Irregularly irregular. RESPIRATORY: No accessory muscle use. Clear to auscultation bilaterally. GASTROINTESTINAL: Abdomen soft, non-tender, nondistended. + BS MUSCULOSKELETAL: Extremities without edema, or cyanosis. MAEW, + perfused NEUROLOGICAL: Awake, alert, oriented x3. Normal speech. Results Procedures completed during hospitalization: . - Impressions ITS Impressions Chest CT 08/17/18 08:00 CONCLUSION: 1. Small focal subsegmental consolidating airspace disease with underlying airspace changes in the lingula. 2. Minimal tree-in-bud pattern which may relate to mild airspace disease or infectious bronchiolitis. 3. Hepatic cyst 4. No evidence of suspicious mass or lymphadenopathy. Chest X-Ray 08/18/18 06:00 CONCLUSION: No acute cardiopulmonary disease identified. Discharge Plan - Discharge Disposition Patient Disposition: /[facility] - Discharge Condition Condition: Stable - Discharge Order Discharge Orders: Discharge Order (Routine); Ordered 08/20/18 Ordered By: Wil Last ED Use Only Admit Order (Routine); Ordered 08/17/18 Ordered By: Armani Wheatley - Physicians Team Primary Care Provider: Primary Care Physici,Julia Attending Provider: Jane Ceballos Other Providers: Kalpesh Krause MD ; Maxwell Lundberg MD ; Systems, [employer] [facility] ; Husasin Espino MD ; Jina Chang ARNP ; Spencer Castillo MD ; Jane Ceballos MD ; Wil Last ARNP ; Arlen Stevens MD ; Dg Leon MD
[2018-08-20 12:26] VITALS: BP 117/58; PULSE 70; RESP 16; O2SAT 93
== END 2018-08-20 13:52 | disposition home health service (06) ==
LOC: NEPC 00:36 → NEDA 01:38 → N03 04:09 → N06 21:09 → N07 08-18 17:09
PROVIDERS: ADMIT Surgery Trauma Surgery; ATTEND Surgery Trauma Surgery